=== PATIENT | female | born 1980 | race Caucasian/White ===

== ENCOUNTER 2018-07-19 02:30 | Emergency (ER) | payer MEDICAID, OTHER ==
[~2018-07-19] VITALS: Ht 157.5 cm; Wt 79.4 kg
[2018-07-19 02:33] VITALS: BP 132/80
--- NOTE | 2018-07-19 02:33 | NUR ---
PT PRESENTS TO ED WITH N/V/D X4 HRS. PT IS AFEBRILE WITH VSS. A&OX4. 0/10 PAIN POSITIONED IN BED FOR COMFORT. ER MD AWARE. CONTINUE TO MONITOR.
--- NOTE | 2018-07-19 02:33 | NUR ---
TO BED # 4 AMBULATORY, REPORT GIVEN TO ANGELA GHOTRA
[2018-07-19] MEDS ORDERED: MORPHINE SULFATE 2 MG/ML SYR IM ONE (02:50)
[2018-07-19] MEDS ORDERED: FAMOTIDINE 20 MG/2 ML VIAL IVP ONE (02:50)
[2018-07-19] MEDS ORDERED: NACL 0.9% 1,000 ML IV SCH (02:50)
[2018-07-19] MEDS ORDERED: diphenhydrAMINE 50 MG/ML VIAL IVP ONE (02:50)
[2018-07-19] MEDS ORDERED: NACL 0.9% 1,000 ML IV ONE (02:50)
[2018-07-19] MEDS ORDERED: METOCLOPRAMIDE 10 MG/2 ML INJ VIAL IVP ONE (02:50)
[2018-07-19 03:23] LABS: BASOPHILS % (AUTO) 0.2 % (0.0-2.0); EOSINOPHILS # (AUTO) 0.1 K/uL (0-0.4); EOSINOPHILS % (AUTO) 1.1 % (0.0-4.0); HEMATOCRIT 41.6 % (36-48); HEMOGLOBIN 13.4 g/dL (12.0-16.0); LYMPHOCYTES # (AUTO) 0.7 K/uL (2.5-16.5); MEAN CORPUSCULAR HEMOGLOBIN 27 pg (27-31); MEAN CORPUSCULAR HGB CONC 32 g/dL (33-37); MEAN CORPUSCULAR VOLUME 85.2 fL (80-94); MONOCYTES # (AUTO) 0.7 K/uL (0.8-1.0); MONOCYTES % (AUTO) 5.1 % (1.7-9.3); NEUTROPHILS % (AUTO) 88.7 % (42.2-75.2); PLATELET COUNT (AUTO) 203 K/uL (140-450); RED BLOOD CELL COUNT(AUTO) 4.89 MIL/uL (4.20-5.40); RED CELL DISTRIBUTION WIDTH 13.8 % (11.6-13.7); WHITE BLOOD COUNT (AUTO) 13.6 K/uL (4.8-10.8)
[2018-07-19 03:29] LABS: ANION GAP 6.4 (8-16); CARBON DIOXIDE 26.7 mmol/L (21-32); CREATININE 0.8 mg/dL (0.6-1.3); POTASSIUM 4.1 mmol/L (3.5-5.1)
[2018-07-19 03:33] LABS: LYMPHOCYTES % (AUTO) 4.9 % (20.5-51.1)
[2018-07-19 03:35] LABS: ALBUMIN 3.6 g/dL (3.4-5.0); TOTAL BILIRUBIN 0.3 mg/dL (0.0-1.0)
[2018-07-19] MEDS ORDERED: ONDANSETRON 4 MG/2 ML VIAL IVP ONE (04:45)
[2018-07-19 04:51] LABS: APPEARANCE,URINE CLOUDY (CLEAR); BILIRUBIN,URINE NEGATIVE (NEGATIVE); BLOOD, URINE 3+ (NEGATIVE); COLOR,URINE RED (YELLOW); LEUKOCYTE ESTERASE ,URINE 1+ (NEGATIVE); NITRITE, URINE NEGATIVE (NEGATIVE); PH,URINE 8.5 (5.0-9.0); UGLUCOSE NEGATIVE (NEGATIVE)
[2018-07-19 05:01] LABS: RBC,URINE TOO NUMEROUS TO COUN /HPF (0-5)
--- NOTE | 2018-07-19 05:17 | NUR ---
AWAITING DC ORDERS FROM DR PEACOCK.
[2018-07-19 05:30] VITALS: BP 132/80
--- NOTE | 2018-07-19 05:30 | NUR ---
Patient discharged with v/s stable. Written and verbal after care instructions given and explained. Patient alert, oriented and verbalized understanding of instructions. Ambulatory with steady gait. All questions addressed prior to discharge. ID band removed. Patient advised to follow up with PMD. Rx of Pepcid, Zofran, and Imodium given. Patient educated on indication of medication including possible reaction and side effects. Opportunity to ask questions provided and answered.
== END 2018-07-19 05:30 | disposition home or self-care (01) ==
LOC: MED 02:30
DX: K52.29 Other allergic and dietetic gastroenteritis and colitis (principal)
CPT/HCPCS: 36415; 74176; 80053; 81001; 81025; 83690; 85025; 87086; 96361; 96374; 96375; 99285; J1200; J2270; J2405; J2765; J3490; J7030

== ENCOUNTER 2019-06-14 21:44 | Emergency (ER) | payer MEDICAID, OTHER ==
[~2019-06-14] VITALS: Ht 157.5 cm; Wt 79.4 kg
[2019-06-14 21:50] VITALS: BP 140/87
[2019-06-14 23:11] VITALS: BP 122/78
== END 2019-06-14 23:09 | disposition home or self-care (01) ==
LOC: MED 21:44
DX: F45.8 Other somatoform disorders (principal); Z86.39 Personal history of other endocrine, nutritional and metabolic disease
CPT/HCPCS: 71045; 87081; 99284; Q0092

== ENCOUNTER 2019-10-21 10:02 | Emergency (ER) | payer MEDICAID, OTHER ==
[~2019-10-21] VITALS: Ht 157.5 cm; Wt 79.4 kg
--- NOTE | 2019-10-21 10:05 | NUR ---
Patient ambulated with steady gait to bed 8.
[2019-10-21 10:09] VITALS: BP 142/82
--- NOTE | 2019-10-21 10:12 | NUR ---
39/F BIB SELF C/O COUGH, SORE THROAT & L EAR PAIN X 1 WEEK. MED HX: HYPOTHYROID. PATIENT STATES PAIN OF 7/10 AT THIS TIME.PATIENT POSITIONED FOR COMFORT; HOB ELEVATED; BEDRAILS UP X1; BED DOWN. ER MD MADE AWARE OF PT STATUS.
--- NOTE | 2019-10-21 10:19 | NUR ---
Patient being evaluated by DR MELO at bedside.
[2019-10-21 10:58] VITALS: BP 142/82
--- NOTE | 2019-10-21 10:58 | NUR ---
Patient discharged with v/s stable. Written and verbal after care instructions given and explained. Patient alert, oriented and verbalized understanding of instructions. Ambulatory with steady gait. All questions addressed prior to discharge. ID band removed. Patient advised to follow up with PMD. Rx of DETROMETHOPHAN & AMOXICILLIN given. Patient educated on indication of medication including possible reaction and side effects. Opportunity to ask questions provided and answered.
== END 2019-10-21 10:58 | disposition home or self-care (01) ==
LOC: MED 10:02
DX: J06.9 Acute upper respiratory infection, unspecified (principal); H66.92 Otitis media, unspecified, left ear; E03.9 Hypothyroidism, unspecified
CPT/HCPCS: 99283

== ENCOUNTER 2019-12-04 17:06 | Emergency (ER) | payer MEDICAID, OTHER ==
[~2019-12-04] VITALS: Ht 157.5 cm; Wt 74.8 kg
[2019-12-04 17:15] VITALS: BP 127/90
--- NOTE | 2019-12-04 17:18 | NUR ---
TO LOBBY A/W BED AMBULATORY
--- NOTE | 2019-12-04 18:05 | NUR ---
PT AMBULATED TO ER BED 12
--- NOTE | 2019-12-04 18:52 | NUR ---
39 Y/F PRESENTS TO ED FOR THROAT PAIN X 2 WEEKS "FEELS LKE SOMETHING IS STUCK". PAIN ON L SIDE OF ANTERIOR THORAT AND R SIDE OF POSTERIOR NECK. PT DOES NOT RECALL SWALLOWING ANY FOREIGN BODY. NECK SYMMETRICAL, AND TENDER TO TOUCH. PT ALSO REPORTS CRAMP/SHARP B LOW ABD PAIN 7/10 X 1 WEEK, THAT RADIATES THROUGHOUT ABDOMEN. PT REPORTS CONSTIPATION, LAST BM TODAY. PT DENIES N/V/D. PT ALSO REPORTS FOUL SMELLING ODOR IN URINE. DENIES FREQUENCY OR BURNING. HX- THYROID RX- LEVOTHYROXINE.
--- NOTE | 2019-12-04 19:20 | NUR ---
REPORT RECIVED FROM WESLEY GHOTRA. CONTINUATION OF CARE.
--- NOTE | 2019-12-04 19:23 | NUR ---
Pt report given to frances berg. Transfer of care at this time.
--- NOTE | 2019-12-04 20:00 | NUR ---
PT RESTING IN BED SITTING UPRIGHT. PT AAO X4. RESPIRATIONS ARE EVEN AND UNLABORED. SKIN IS WARM AND DRY TO TOUCH. PT STATES PAIN HAS REDUCED TO 2/10 IN LOWER ABD AND IS TOLERABLE. PT VSS. BED LOCKED AND IN LOWEST POSTION.
[2019-12-04 20:25] VITALS: BP 124/88
--- NOTE | 2019-12-04 20:25 | NUR ---
Patient discharged with v/s stable. Written and verbal after care instructions given and explained. Patient alert, oriented and verbalized understanding of instructions. Ambulatory with steady gait. All questions addressed prior to discharge. ID band removed. Patient advised to follow up with PMD. Rx of BENTYL, PEPCID given. Patient educated on indication of medication including possible reaction and side effects. Opportunity to ask questions provided and answered.
== END 2019-12-04 20:25 | disposition home or self-care (01) ==
LOC: MED 17:06
DX: F45.8 Other somatoform disorders (principal); R10.9 Unspecified abdominal pain; E07.9 Disorder of thyroid, unspecified
CPT/HCPCS: 81002; 81025; 99283

== ENCOUNTER 2020-02-27 11:44 | Emergency (ER) | payer MEDICAID, OTHER ==
[~2020-02-27] VITALS: Ht 157.5 cm; Wt 72.6 kg
[2020-02-27 11:53] VITALS: BP 151/81
[2020-02-27] MEDS ORDERED: IBUPROFEN 800 MG TAB PO ONE (12:40)
[2020-02-27 13:00] VITALS: BP 142/87
== END 2020-02-27 13:00 | disposition home or self-care (01) ==
LOC: MED 11:44
DX: S93.402A Sprain of unspecified ligament of left ankle, initial encounter (principal); E07.9 Disorder of thyroid, unspecified; W17.89XA Other fall from one level to another, initial encounter; Y93.89 Activity, other specified; Y92.89 Other specified places as the place of occurrence of the external cause; Y99.8 Other external cause status
CPT/HCPCS: 73610; 99283; Q0092

== ENCOUNTER 2021-06-10 16:39 | Emergency (ER) | payer OTHER ==
[~2021-06-10] VITALS: Ht 157.5 cm; Wt 68.0 kg
[2021-06-10 16:48] VITALS: BP 136/88
--- NOTE | 2021-06-10 16:56 | NUR ---
Patient ambulated to bed 05 with steady/even gait.
--- NOTE | 2021-06-10 17:15 | NUR ---
40 y/o F BIB self from home with c/c low abdominal pain. Patient A&Ox4, ambulatory, states low abdomen pain, 6/10, sharp/intermittent, non-radiating pain. Patient also reports bloating x 1 month, back pain, constipation, and weight gain. Patient denies any medications prior to arrival. Denies nausea, vomiting, fever, chills, dizziness, urinary symptoms. Bed locked in lowest positoin, side rails x 1. PMH: thyroid disease Meds/Sx/Allergies: Denies
--- NOTE | 2021-06-10 17:18 | NUR ---
Dr. Shipley is evaluating patient at bedside.
--- NOTE | 2021-06-10 17:32 | NUR ---
Lab at bedside
[2021-06-10 17:47] LABS: BASOPHILS # (AUTO) 0.1 K/uL (0.00-0.22); BASOPHILS % (AUTO) 0.9 % (0.0-2.0); EOSINOPHILS # (AUTO) 0.1 K/uL (0-0.4); EOSINOPHILS % (AUTO) 1.9 % (0.0-4.0); HEMATOCRIT 37.7 % (36-48); HEMOGLOBIN 12.7 g/dL (12.0-16.0); LYMPHOCYTES # (AUTO) 2.6 K/uL (2.5-16.5); LYMPHOCYTES % (AUTO) 36.7 % (20.5-51.1); MEAN CORPUSCULAR HEMOGLOBIN 30 pg (27-31); MEAN CORPUSCULAR HGB CONC 34 g/dL (33-37); MEAN CORPUSCULAR VOLUME 88.4 fL (80-94); MONOCYTES # (AUTO) 0.7 K/uL (0.8-1.0); MONOCYTES % (AUTO) 9.5 % (1.7-9.3); NEUTROPHILS # (AUTO) 3.6 K/uL (1.8-7.7); PLATELET COUNT (AUTO) 162 K/uL (140-450); RED BLOOD CELL COUNT(AUTO) 4.27 MIL/uL (4.20-5.40); RED CELL DISTRIBUTION WIDTH 13.9 % (11.6-13.7)
[2021-06-10] MEDS ORDERED: BEN10 PO (17:51)
[2021-06-10] MEDS ORDERED: DOCU-299 PO (17:51)
[2021-06-10 18:35] LABS: ALBUMIN 3.5 g/dL (3.4-5.0); ANION GAP 12.6 (8-16); CARBON DIOXIDE 27.7 mmol/L (21-32); CREATININE 0.8 mg/dL (0.6-1.3); POTASSIUM 4.3 mmol/L (3.5-5.1); TOTAL BILIRUBIN 0.2 mg/dL (0.0-1.0)
[2021-06-10] MEDS ORDERED: DICYCLOMINE HCL LIQUID 20 MG, ALUMINUM HYD/MAG/SIMETHICONE 30 ML, LIDOCAINE VISCOUS 2% ... PO ONE ×3 (18:35)
[2021-06-10] MEDS ORDERED: ALUMINUM HYD/MAG/SIMETHICONE 30 ML UDC ONE (18:42)
[2021-06-10] MEDS ORDERED: DICYCLOMINE HCL LIQUID 10 MG/5 ML UDC ONE (18:42)
--- NOTE | 2021-06-10 19:11 | NUR ---
Report and transfer of care endorsed to Jad, RN
[2021-06-10 19:51] VITALS: BP 136/88
--- NOTE | 2021-06-10 19:51 | NUR ---
Patient discharged with v/s stable. Written and verbal after care instructions given and explained. Patient alert, oriented and verbalized understanding of instructions. Ambulatory with steady gait. All questions addressed prior to discharge. ID band removed. Patient advised to follow up with PMD. Rx of BENTYL AND COLACE given. Patient educated on indication of medication including possible reaction and side effects. Opportunity to ask questions provided and answered.
== END 2021-06-10 19:51 | disposition home or self-care (01) ==
LOC: MED 16:39
DX: K58.9 Irritable bowel syndrome, unspecified (principal); G89.29 Other chronic pain; E07.9 Disorder of thyroid, unspecified; Z79.899 Other long term (current) drug therapy
CPT/HCPCS: 36415; 80053; 81002; 81025; 83690; 85025; 99283

== ENCOUNTER 2023-04-05 16:18 | Emergency (ER) | payer OTHER, MEDICAID ==
[~2023-04-05] VITALS: Ht 157.5 cm; Wt 71.7 kg
[~2023-04-05 16:18] MED LIST: BEN10 PO; DOCU-299 PO
[2023-04-05 17:24] VITALS: BP 151/92; PULSE 69; RESP 16; TEMP 98.2; O2SAT 100
[2023-04-05] MEDS ORDERED: ALUM355S59 PO (18:10)
[2023-04-05] MEDS ORDERED: PRED20TA5 PO (18:10)
--- NOTE | 2023-04-05 18:22 | NUR ---
Patient discharged with v/s stable. Written and verbal after care instructions given and explained. Patient verbalized understanding. Ambulatory with steady gait. All questions addressed prior to discharge. Advised to follow up with PMD.
== END 2023-04-05 18:22 | disposition home or self-care (01) ==
LOC: MED 16:18
DX: K12.0 Recurrent oral aphthae (principal); E07.9 Disorder of thyroid, unspecified; Z79.899 Other long term (current) drug therapy
CPT/HCPCS: 99281